=== PATIENT | female | born 1960 | race Caucasian/White ===

== ENCOUNTER 2023-05-14 13:29 | Emergency (ER) | payer BC ==
[~2023-05-14] VITALS: Ht 160 cm; Wt 78.0 kg
[2023-05-14] MEDS ORDERED: ASPIRIN 325 MG TAB PO ONE (13:45)
[2023-05-14 14:06] LABS: BASOPHILS % 0.4 % (0.0-1.0); EOSINOPHILS % 0.4 % (0.0-6.0); HEMOGLOBIN 16.3 g/dL (12.0-16.0); LYMPHOCYTES # (AUTO) 3.2 (1.0-3.2); LYMPHOCYTES % 38.8 % (18.0-39.1); MEAN CORPUSCULAR HEMOGLOBIN 29.4 pg (28-32); MEAN CORPUSCULAR VOLUME 86.6 fL (81-99); MONOCYTES # (AUTO) 0.5 (0.2-0.8); MONOCYTES % 5.7 % (4.4-11.3); NEUTROPHILS # (AUTO) 4.5 (2.1-6.9); NEUTROPHILS % 54.5 % (38.7-80.0); PLATELET COUNT 234 x10e3/uL (140-360); RED BLOOD COUNT 5.54 x10e6/uL (3.6-5.1); RED CELL DISTRIBUTION WIDTH 13.8 % (11.7-14.4)
[2023-05-14 14:25] LABS: ALBUMIN 4.3 g/dL (3.5-5.0); ALBUMIN/GLOBULIN RATIO 1.3 (0.8-2.0); ANION GAP 15.6 mmol/L (8-16); CALCIUM 9.9 mg/dL (8.4-10.2); CREATININE, SERUM 0.76 mg/dL (0.57-1.11); POTASSIUM 3.6 mmol/L (3.5-5.1)
[2023-05-14] MEDS ORDERED: INSULIN REGULAR, HUMAN 100 UNIT/1 ML SQ SCH (16:30)
[2023-05-14] MEDS ORDERED: ONDANSETRON HCL INJ 2MG/ML 2ML 2 MG/ML VIAL IV PRN (16:30)
[2023-05-14] MEDS ORDERED: DEXTROSE 50% SYRINGE 50 ML IV PRN (16:30)
[2023-05-14] MEDS ORDERED: ACETAMINOPHEN 325 MG TAB PO PRN (16:30)
[2023-05-14] MEDS ORDERED: CLONIDINE HCL 0.1 MG TAB PO PRN (16:30)
[2023-05-14] MEDS ORDERED: NITROGLYCERIN 0.2 MG/HR PATCH TOP SCH (17:15)
[2023-05-14 17:33] VITALS: O2SAT 100
[2023-05-14] MEDS ORDERED: SIMVASTATIN 20 MG TAB PO SCH (21:00)
== END 2023-05-14 18:43 | disposition other institution (70) ==
LOC: ER 13:35
DX: R07.9 Chest pain, unspecified (principal); I10 Essential (primary) hypertension; E11.9 Type 2 diabetes mellitus without complications; Z88.7 Allergy status to serum and vaccine
CPT/HCPCS: 36415; 71045; 76705; 80053; 82948; 83690; 84484; 85025; 93005; 99284